=== PATIENT | male | born 1970 | race Caucasian/White ===

== ENCOUNTER → 2016-11-22 | Outpatient (CLI) | payer OTHER ==
[~2016-11-22] VITALS: Ht 188 cm; Wt 146.1 kg
[~2016-11-22] MED LIST: AMOXICILLIN 50500 MG PO
[2016-11-22 12:07] VITALS: BP 143/83; PULSE 86
[2016-11-22 12:45] VITALS: BP 148/88; PULSE 83
[2016-11-22 13:05] VITALS: BP 126/69; PULSE 76
== END ==
LOC: COL.RAD 11:42
DX: D36.0 Benign neoplasm of lymph nodes (principal); C34.31 Malignant neoplasm of lower lobe, right bronchus or lung
CPT/HCPCS: 25581

== ENCOUNTER → 2016-12-19 | Outpatient (REF) | payer OTHER | LOC: EDSTATUS 08:22 → ZMSC 12:00 | DX: Z01.89 Encounter for other specified special examinations (principal) ==

== ENCOUNTER → 2017-02-15 | Outpatient (CLI) | payer OTHER | LOC: COL.VAS 09:11 | DX: R59.9 Enlarged lymph nodes, unspecified (principal); Z79.899 Other long term (current) drug therapy ==